=== PATIENT | male | born 1960 | race Caucasian/White ===

== ENCOUNTER 2019-06-23 19:26 | Emergency (ER) | payer MEDICAID ==
[2019-06-23] MEDS: HYDROCODONE/APAP (5/325) TAB PO (20:38)
== END 2019-06-23 21:05 | disposition home or self-care (01) ==
LOC: FTE 19:26
DX: T15.92XA Foreign body on external eye, part unspecified, left eye, initial encounter (principal); X58.XXXA Exposure to other specified factors, initial encounter; Y92.9 Unspecified place or not applicable
CPT/HCPCS: 99283; Z7502